=== PATIENT | male | born 1970 | race Caucasian/White ===

== ENCOUNTER 2020-05-29 14:35 | Outpatient (CLI) | payer OTHER ==
--- NOTE | 2020-05-29 15:52 | MRI ---
MRI RIGHT KNEE: DATE: 05/29/2020. PROVIDED CLINICAL HISTORY: Right knee pain. FINDINGS: No comparisons. The anterior cruciate ligament, posterior cruciate ligament, medial collateral ligam ent, and lateral collateral ligamentous complex demonstrate an intact MRI appearance, as does the ext ensor mechanism. There is a small radial tear involving the body of the lateral meniscus. The medial meniscus demonst rates no evidence for a tear. There is articular cartilage irregularity involving the median ridge and lateral facet of the patella with foci of full-thickness articular cartilage fissuring. Articular cartilage appears otherwise pr eserved. There is a small knee joint effusion. No focal concerning regional marrow or muscular signal abnormality apparent. IMPRESSION: 1. Small radial tear involving the body of the lateral meniscus. 2. Patellar chondrosis as described. 3. Small knee joint effusion. POS: KRISTEN
== END 2020-05-29 14:36 | disposition home or self-care (01) ==
LOC: BICMRI 14:35
PROVIDERS: ATTEND Orthopaedic Surgery
DX: M25.561 Pain in right knee (principal); S83.281A Other tear of lateral meniscus, current injury, right knee, initial encounter; M25.461 Effusion, right knee; M22.41 Chondromalacia patellae, right knee